=== PATIENT | female | born 1980 | race Caucasian/White ===

== ENCOUNTER 2018-03-31 06:55 | Inpatient (IN) | payer OTHER ==
[~2018-03-31] VITALS: Ht 157.5 cm; Wt 124.5 kg
[2018-03-31] MEDS ORDERED: LACTATED RINGERS 1,000 ML IV SCH ×3 (10:23→14:00)
[2018-03-31] MEDS ORDERED: OXYTOCIN 30U/ 0.9% NaCL 500ML 500 ML IV SCH ×2 (10:23→13:18)
[2018-03-31] MEDS ORDERED: LACTATED RINGERS 1,000 ML IVBOLUS ONE (10:30)
[2018-03-31] MEDS ORDERED: CEFAZOLIN PMX 1GM/50ML 50 ML IVPB ONE (10:30)
[2018-03-31] MEDS ORDERED: METOCLOPRAMIDE 5 MG/ML, 2ML IV ONE (10:30)
[2018-03-31] MEDS ORDERED: SODIUM CITRATE/CITRIC ACID 30 ML UDC PO ONE (10:30)
[2018-03-31 10:32] VITALS: BP 119/75
[2018-03-31] MEDS ORDERED: morphine SULFATE/PF 0.5 MG/ML, 10ML ONE (10:51)
[2018-03-31] MEDS ORDERED: NEWBORN KIT ONE (10:59)
[2018-03-31] MEDS ORDERED: SODIUM CITRATE/CITRIC ACID 30 ML UDC ONE ×2 (10:59)
[2018-03-31] MEDS ORDERED: METOCLOPRAMIDE 5 MG/ML, 2ML ONE (10:59)
[2018-03-31] MEDS ORDERED: PLEASE ENTER HEIGHT AND WEIGHT MC SCH ×2 (11:00)
[2018-03-31] MEDS ORDERED: PLEASE ENTER ALLERGIES MC SCH ×2 (11:00)
[2018-03-31 11:27] LABS: BASOPHILS # (AUTO) 0.04 x10^3/uL (0-0.1); BASOPHILS % (AUTO) 0 % (0-1); EOSINOPHILS # (AUTO) 0.26 x10^3/uL (0-0.4); EOSINOPHILS % (AUTO) 2 % (1-7); LYMPHOCYTES # (AUTO) 1.58 x10^3/uL (1-3.4); LYMPHOCYTES % (AUTO) 13 % (22-44); MD NO; MEAN CORPUSCULAR HEMOGLOBIN 29.7 pg (27.0-34.8); MEAN CORPUSCULAR HGB CONC 33.8 g/dL (32.4-35.8); MEAN CORPUSCULAR VOLUME 87.9 fL (80-100); MEAN PLATELET VOLUME 9.4 fL (7.4-10.4); MONOCYTES % (AUTO) 4 % (2-9); NEUTROPHILS # (AUTO) 9.43 x10^3/uL (1.8-6.8); NEUTROPHILS % (AUTO) 80 % (42-75); PLATELET COUNT 180 x10^3/uL (130-400); RED BLOOD COUNT 4.04 x10^6/uL (3.82-5.3); RED CELL DISTRIBUTION WIDTH 15.1 % (9.6-15.2)
[2018-03-31] MEDS ORDERED: PHENYLEPHRINE 10 MG/ML ONE (11:50)
[2018-03-31] MEDS ORDERED: EPHEDRINE 50 MG/ML, 1ML ONE (11:50)
[2018-03-31] MEDS ORDERED: WATER-INJECTION,STERILE 10 ML IV ONE (11:50)
[2018-03-31] MEDS ORDERED: ONDANSETRON 2MG/ML, 2ML ONE ×2 (11:50→14:32)
[2018-03-31] MEDS ORDERED: OXYTOCIN 10 UNITS/ML, 1ML ONE (11:50)
[2018-03-31] MEDS ORDERED: CEFAZOLIN 1,000 MG ONE (11:50)
[2018-03-31] MEDS: LACTATED RINGERS 1,000 ML IV SCH ×2 (13:18→21:18)
[2018-03-31 13:30] VITALS: BP 119/72
[2018-03-31] MEDS ORDERED: ACETAMINOPHEN 325 MG TABLET PO PRN (13:30)
[2018-03-31] MEDS ORDERED: CALCIUM CARBONATE 500 MG TAB.CHEW PO PRN (13:30)
[2018-03-31] MEDS ORDERED: MEPERIDINE/PF 50 MG/ML IVPush PRN (13:30)
[2018-03-31] MEDS ORDERED: OXYcodone/APAP 5/325MG TABLET PO PRN (13:30)
[2018-03-31] MEDS ORDERED: MISOPROSTOL 200 MCG TABLET PR PRN (13:30)
[2018-03-31] MEDS: PLEASE ENTER ALLERGIES MC SCH ×2 (13:30→23:00)
[2018-03-31] MEDS ORDERED: METOCLOPRAMIDE 5 MG/ML, 2ML IV PRN (13:30)
[2018-03-31] MEDS ORDERED: SIMETHICONE 80 MG CHEW TAB PO PRN (13:30)
[2018-03-31] MEDS ORDERED: ONDANSETRON 2MG/ML, 2ML IV PRN (13:30)
[2018-03-31] MEDS ORDERED: morphine SULFATE 10 MG/ML, 1ML IVPush PRN ×2 (13:30)
[2018-03-31] MEDS ORDERED: MEPERIDINE/PF 100 MG/ML IVPush PRN (13:30)
[2018-03-31] MEDS: KETOROLAC 30 MG/1 ML IV SCH (18:17)
[2018-03-31 19:50] VITALS: BP 109/69
[2018-03-31 20:55] LABS: BASOPHILS # (AUTO) 0.02 x10^3/uL (0-0.1); BASOPHILS % (AUTO) 0 % (0-1); EOSINOPHILS # (AUTO) 0.04 x10^3/uL (0-0.4); EOSINOPHILS % (AUTO) 0 % (1-7); LYMPHOCYTES # (AUTO) 0.93 x10^3/uL (1-3.4); LYMPHOCYTES % (AUTO) 6 % (22-44); MD NO; MEAN CORPUSCULAR HEMOGLOBIN 29.8 pg (27.0-34.8); MEAN CORPUSCULAR HGB CONC 33.4 g/dL (32.4-35.8); MEAN CORPUSCULAR VOLUME 89.1 fL (80-100); MEAN PLATELET VOLUME 9.2 fL (7.4-10.4); MONOCYTES # (AUTO) 0.59 x10^3/uL (0.2-0.8); MONOCYTES % (AUTO) 4 % (2-9); NEUTROPHILS # (AUTO) 14.05 x10^3/uL (1.8-6.8); NEUTROPHILS % (AUTO) 90 % (42-75); PLATELET COUNT 171 x10^3/uL (130-400); RED BLOOD COUNT 4.22 x10^6/uL (3.82-5.3)
[2018-03-31] MEDS ORDERED: RHOGAM FROM BLOOD BANK 1 NOTE EA IM/IV ONE (23:00)
[2018-04-01] MEDS: KETOROLAC 30 MG/1 ML IV SCH ×2 (00:06→05:37)
[2018-04-01 00:10] VITALS: BP 110/75
[2018-04-01 05:00] VITALS: BP 110/68
[2018-04-01] MEDS: PLEASE ENTER ALLERGIES MC SCH (05:30)
[2018-04-01 07:35] VITALS: BP 113/74
[2018-04-01] MEDS ORDERED: ENOXAPARIN 40 MG/0.4 ML SQ SCH (13:30)
[2018-04-01] MEDS ORDERED: IBUPROFEN 600 MG TABLET ONE ×2 (14:04→20:20)
[2018-04-01] MEDS: IBUPROFEN 600 MG TABLET PO PRN ×2 (14:07→20:23)
[2018-04-01] MEDS: OXYcodone/APAP 5/325MG TABLET PO PRN ×2 (14:07→20:23)
[2018-04-01] MEDS: DOCUSATE 100 MG CAPSULE PO PRN (14:07)
[2018-04-01] MEDS: PRENATAL VIT/IRON/FA 1 EACH TABLET PO SCH (14:07)
[2018-04-01 19:45] VITALS: BP 102/69
[2018-04-02] MEDS: OXYcodone/APAP 5/325MG TABLET PO PRN ×3 (01:27→10:00)
[2018-04-02] MEDS ORDERED: IBUPROFEN 600 MG TABLET ONE (06:28)
[2018-04-02] MEDS: IBUPROFEN 600 MG TABLET PO PRN (06:33)
[2018-04-02 07:30] VITALS: BP 123/72
[2018-04-02] MEDS ORDERED: PREN1TAB60 PO (07:50)
[2018-04-02] MEDS ORDERED: DOCU-131 PO (07:50)
[2018-04-02] MEDS ORDERED: IBUP-1222 PO (07:50)
[2018-04-02] MEDS ORDERED: OXYC-302 PO (07:52)
[2018-04-02] MEDS: PRENATAL VIT/IRON/FA 1 EACH TABLET PO SCH (10:00)
[2018-04-02] MEDS: DOCUSATE 100 MG CAPSULE PO PRN (10:00)
== END 2018-04-02 10:16 | disposition home or self-care (01) | DRG 765 ==
LOC: LDIP 10:18 → 2NW 15:14
PROVIDERS: ADMIT Obstetrics & Gynecology; ATTEND Obstetrics & Gynecology
PROC: 10D00Z1 Extraction of Products of Conception, Low, Open Approach (ICD-10-PCS; principal; 2018-03-31)
PROC: 0UB70ZZ Excision of Bilateral Fallopian Tubes, Open Approach (ICD-10-PCS; 2018-03-31)
PROC: 30233S1 Transfusion of Nonautologous Globulin into Peripheral Vein, Percutaneous Approach (ICD-10-PCS; 2018-03-31)
DX: O34.211 Maternal care for low transverse scar from previous cesarean delivery (principal); Z68.43 Body mass index [BMI] 50.0-59.9, adult; E66.01 Morbid (severe) obesity due to excess calories; O14.24 HELLP syndrome, complicating childbirth; O99.214 Obesity complicating childbirth; Z3A.39 39 weeks gestation of pregnancy; Z79.82 Long term (current) use of aspirin; Z37.0 Single live birth; Z30.2 Encounter for sterilization
CPT/HCPCS: 36415; 85025; 85461; 86850; 86900; J0690; J1885; J2274; J2405; J2790; J2370; J2590; J2765; J7120